=== PATIENT | female | born 1995 | race African-American/Black ===

== ENCOUNTER 2021-05-24 23:48 | Inpatient (IN) ==
[2021-05-25] MEDS ORDERED: MEPERIDINE 50 MG/1 ML VIAL IV PRN (00:07)
[2021-05-25] MEDS ORDERED: BUTORPHANOL 2 MG/ML VIAL IV PRN (00:07)
[2021-05-25] MEDS ORDERED: ONDANSETRON 4 MG/2 ML VIAL IV PRN (00:07)
[2021-05-25] MEDS ORDERED: miSOPROStoL 200 MCG TABLET ONE (00:13)
[2021-05-25] MEDS ORDERED: CARBOPROST TROMETHAMINE 250 MCG/ML AMP IM ONE (00:13)
[2021-05-25] MEDS ORDERED: TRANEXAMIC ACID 1,000 MG/10 ML VIAL ONE (00:13)
[2021-05-25] MEDS ORDERED: OXYTOCIN/LR 20 UNIT/1,000 ML BAG IV ONE ×2 (00:13→00:20)
[2021-05-25] MEDS ORDERED: METHYLERGONOVINE 0.2 MG/1 ML AMP ONE (00:13)
[2021-05-25] MEDS ORDERED: LACTATED RINGERS 1,000 ML IV SCH (00:30)
[2021-05-25 00:44] LABS: Cord Arterial Blood HCO3 26.6 MMOL/L; Cord Venous Blood HCO3 24.7 MMOL/L; Cord Venous Blood PCO2 40.9 MMHG
[2021-05-25 00:45] LABS: Basophils % 0.4 % (0.0-0.8); Eosinophils # 0.2 10*3/uL (0.0-0.87); Eosinophils % 1.6 % (0.00-10.9); Hematocrit 28.1 VOL% (35.7-47.0); Hemoglobin 8.9 GM/DL (12.0-16.0); Immature Granulocytes % 0.8 %; Immature Granulocytes Absolute 0.08 #; Lymphocytes # 2.7 10*3/uL (1.4-4.0); Lymphocytes % 26.8 % (21.3-54.2); Mean Corpuscular HGB Conc 31.7 GM/DL (32-36); Mean Corpuscular Volume 81.7 FL (87-102); Mean Platelet Volume 9.6 FL (9.6-12.0); Monocytes % 6.8 % (1.7-12.7); Neutrophils % 63.6 % (38.7-73.9); Platelet Count 303 T/CUMM (130-400); Red Blood Count 3.44 MC/CUMM (3.8-5.5); Red Cell Distribution Width 15.5 % (9.3-17.3)
[2021-05-25 01:08] LABS: Bilirubin,Urine Negative (Negative); Blood, Urine Small mg/dL (Negative); Glucose,Urine (UA) Negative (Negative); Ketones,Urine 80 mg/dL (Negative); Mucus,Urine Many /LPF (Occasional); Nitrite,Urine Negative (Negative); Protein,Urine 100 MG/DL; RBC,Urine 14 /HPF (0-4); Squamous Epithelial Cell,Urine Occasional /HPF (0-10); Urine Appearance CLEAR (Clear); Urine Color Amber (Yellow); Urine Specific Gravity 1.027 (1.001-1.035)
[2021-05-25 01:32] LABS: Barbiturates Screen,Urine Negative (Negative); Benzodiazepines Screen,Urine Negative (Negative); Cannabinoid Screen,Urine Positive (Negative); Opiate Screen,Urine Negative (Negative); Phencyclidine Screen,Urine Negative (Negative)
[2021-05-25] MEDS: IBUPROFEN 800 MG TABLET PO PRN ×2 (01:37→18:17)
[2021-05-25 03:32] LABS: Rubella Antibody IgG Result Reactive (NonReactive)
[2021-05-25] MEDS ORDERED: HYDROCORTISONE 2.5% RECTAL CREAM 30 GM TUBE TOP PRN (07:16)
[2021-05-25] MEDS ORDERED: BISACODYL 10 MG SUPP RECTAL PRN (07:16)
[2021-05-25] MEDS ORDERED: LANOLIN 50% CREAM 0.3 OZ TUBE TOP PRN (07:16)
[2021-05-25] MEDS ORDERED: BENZOCAINE 20%/MENTHOL 0.5% SPRAY 56 GM CAN TOP PRN (07:16)
[2021-05-25] MEDS ORDERED: DIPH/TET/ACEL PERT BOOSTER VACCINE 0.5 ML VIAL IM ONE (07:16)
[2021-05-25] MEDS ORDERED: WITCH HAZEL PADS 100/JAR TOP PRN (07:16)
[2021-05-25 08:05] LABS: Basophils % 0.2 % (0.0-0.8); Eosinophils % 0.2 % (0.00-10.9); Hematocrit 27.5 VOL% (35.7-47.0); Hemoglobin 8.8 GM/DL (12.0-16.0); Immature Granulocytes % 0.5 %; Immature Granulocytes Absolute 0.06 #; Lymphocytes # 1.4 10*3/uL (1.4-4.0); Lymphocytes % 10.6 % (21.3-54.2); Mean Corpuscular Volume 80.9 FL (87-102); Mean Platelet Volume 9.4 FL (9.6-12.0); Neutrophils % 83.5 % (38.7-73.9); Platelet Count 271 T/CUMM (130-400); Red Cell Distribution Width 15.1 % (9.3-17.3)
[2021-05-25] MEDS: FERROUS SULFATE 325 MG TABLET PO SCH ×2 (09:14→20:55)
[2021-05-25] MEDS: DOCUSATE SODIUM 100 MG CAPSULE PO SCH ×2 (09:14→20:54)
[2021-05-26 08:10] VITALS: BP 125/60
[2021-05-26] MEDS: FERROUS SULFATE 325 MG TABLET PO SCH (08:48)
[2021-05-26] MEDS: DOCUSATE SODIUM 100 MG CAPSULE PO SCH (08:49)
== END 2021-05-26 11:30 | disposition home or self-care (01) | DRG 560 ==
LOC: N.LDOUT 23:48 → N.LD 23:52 → N.OB 05-25 02:33
PROVIDERS: ADMIT Obstetrics & Gynecology; ATTEND Obstetrics & Gynecology